=== PATIENT | female | born 1975 | race Caucasian/White ===

== ENCOUNTER 2016-12-18 18:34 | Emergency (ER) | payer OTHER ==
[2016-12-18 19:22] VITALS: BP 120/81
--- NOTE | 2016-12-18 19:25 | ERNOTE ---
Integumentary HPI - Narrative Date of Service: 12/18/16 - General Presenting Symptoms: rash Time Seen by Provider: 12/18/16 18:56 Source: patient, RN notes reviewed Exam Limitations: no limitations - Immun/Allergies/Home Medications Immunizations: IMMUNIZATION HX Immunizations Up to Date Yes History of Influenza Vaccine No Hx Pneumococcal Vaccination No Allergies/Adverse Reactions: Allergies Allergy/AdvReac Type Severity Reaction Status Date / Time De L[place] And Derivatives Allergy Severe Swelling Verified 12/18/16 18:42 of Throat Home Medications: HOME MEDICATIONS Fexofenadine/Pseudoephedrine [Eli-D 24 Hour Tablet] 1 each PO DAILY [Last Taken Unknown] Triamcinolone Acetonide [Kenalog 0.1%] 15 gm TP TID #2 tube 12/18/16 [Last Taken Unknown] predniSONE [Prednisone] 1 tab PO DAILY #20 tab 12/18/16 [Last Taken Unknown] - History of Present Illness Narrative: Deloris is a 41-year-old female ambulatory to the emergency department for a pruritic rash to both of her forearms that began 4 days ago. She had been eating a flower bed that had poison she in 2 days prior. She has been applying hydrocortisone cream to the rash. She had some leftover prednisone that she also took for a couple of days. She routinely takes Eli and has also been taking Benadryl. She reports that she has never had poison she before and she thought that it should be going away by now. Location: Reports: upper extremity Quality: Reports: itching Severity: mild Exposure: Reports: poison she/oak Prior Treatment: Denies: recently seen Review of Systems - Review of Systems Constitutional: Absent: fever, chills, malaise EYE: Present: no symptoms reported ENT: Absent: nose congestion, throat swelling Respiratory: Absent: shortness of breath, wheezing Cardiology: Present: no symptoms reported Gastrointestinal/Abdominal: Present: no symptoms reported Genitourinary: Present: no symptoms reported Musculoskeletal: Absent: muscle pain, joint pain Skin: Present: rash. Absent: lumps, change in color Neurological: Absent: headache, dizziness/light-headedness, weakness Endocrine: Present: no symptoms reported Hematologic/Lymphatic: Present: no symptoms reported Psych: Present: no symptoms reported - Patient's Past Medical History Patient History - Medical: No pertinent hx Patient History - Cardiac/Respiratory: No pertinent hx Patient History - Cancer: No Hx of Cancer Patient History - Surgical Procedures: Cholecystectomy Patient History - Other: None LMP (females 10-50): other - Social History Living Situations: home Psych History: No pertinent hx Smoking Status: Never smoker - Immunizations Immunizations Up to Date: Yes Hx Pneumococcal Vaccination: No History of Influenza Vaccine: No Physical Exam - Physical Exam General Appearance: Present: wd/wn, alert, no apparent distress Eye Exam: Normal inspection: bilateral Ears, Nose, Throat: Present: normal ENT inspection Neck: Present: normal inspection, nontender, supple Respiratory: Present: no respiratory distress, normal breath sounds, no accessory muscle use, lungs clear Cardiovascular/Chest: Present: regular rate, rhythm, no murmur, normal peripheral pulses Extremity Exam: Present: normal inspection, normal range of motion, no edema Neurological Exam: Present: alert, oriented, normal mood/affect, no motor/ sensory deficits Skin Exam: Present: normal color, warm/dry, skin rash - macular papular eruption to bilateral forearms, most lesions crusted Lymphatic Exam: Present: no adenopathy ED Progress - Vital Signs Patient's Vital Signs:: I have reviewed the patient's vital signs. Vital Signs: Vital Signs 12/18/16 18:38 Temperature 36.8 C Pulse Rate 67 Respiratory 16 Rate Blood Pressure 156/91 O2 Sat by Pulse 97 Oximetry - Progress/Reassessment Chief Complaint: Rash Progress:: Unchanged Plan - Plan Plan: Patient had used the supply of prednisone she normally has on hand for her food allergies, rx given to replace this. Discussed that a topical steroid is adequate to treat her rash, Kenalog cream prescribed. Departure Clinical Impression: Poison she dermatitis - Departure Disposition: Home self-care Condition: Good Instructions: Poison She Dermatitis Prescriptions: Triamcinolone Acetonide [Kenalog 0.1%] 15 gm TP TID #2 tube predniSONE [Prednisone] 1 tab PO DAILY #20 tab
== END 2016-12-18 19:22 | disposition home or self-care (01) ==
LOC: ER 18:34
DX: L23.7 Allergic contact dermatitis due to plants, except food (principal)